=== PATIENT | female | born 1945 | race Caucasian/White ===

== ENCOUNTER 2018-12-26 02:47 | Emergency (ER) | payer MEDICARE ==
--- NOTE | 2018-12-26 03:02 | ER Report ---
History and Physical Time Seen By MD: 02:59 Hx. of Stated Complaint: PATIENT STARTED HAVING RIGHT UPPER QUADRANT PAIN THAT PLEZU5MR AROUND MIDNIGHT. PATIENT HAS HAD A LOT OF NAUSEA, PATIENT STATES IT FEEL LIKE A LOT OF PRESSURE. HPI/ROS CHIEF COMPLAINT: Right upper abdominal pain HISTORY OF PRESENT ILLNESS: This is a 73-year-old female. She is having pain in the right upper abdomen. Started abruptly at about midnight. Had a little bit of nausea associated with this. Nothing seemed to make it worse or better. Did have a little dry heaving. Also having significant pressure-like feeling this area. She has a history of heart arrhythmias, irregular heartbeat. She denies any chest pain at this time. No cough, fever or shortness of breath. Visiting for the weekend, from [place]. Allergies: Coded Allergies: No Known Drug Allergies (Unverified , 12/26/18) Home Meds Active Scripts Ondansetron 4 Mg Odt (ONDANSETRON 4 MG ODT) 4 Mg Tab.rapdis, 4 MG PO Q6H PRN for NAUSEA/VOMITING, #20 TAB 0 Refills Prov:JU KNIGHT MD 12/26/18 Hydrocodone Bit/Acetaminophen (HYDROCODON-ACETAMINOPHEN 5-325) 1 Each Tablet, 1 EACH PO Q4H PRN for PAIN, #12 TAB 0 Refills Prov:JU KNIGHT MD 12/26/18 Reported Medications Lactobacillus Combination No.4 (PROBIOTIC) 1 Each Capsule, 1 EACH PO QDAY, CAPSULE 12/26/18 Nebivolol Hcl (BYSTOLIC) 5 Mg Tablet, 5 MG PO QDAY 12/26/18 Flecainide Acetate (FLECAINIDE ACETATE) 50 Mg Tablet, 50 MG PO QDAY 12/26/18 Reviewed Nurses Notes: Yes Constitutional Vital Sign - Last 24 Hours 12/26/18 12/26/18 12/26/18 12/26/18 02:55 03:00 03:02 03:30 Temp 97.9 Pulse 79 82 Resp 24 B/P (MAP) 151/98 175/97 (123) 163/88 (113) Pulse Ox 90 99 O2 Delivery Room Air 12/26/18 12/26/18 12/26/18 12/26/18 03:32 04:00 04:02 04:07 Pulse 66 66 68 B/P (MAP) 169/94 (119) Pulse Ox 87 89 89 12/26/18 12/26/18 12/26/18 12/26/18 04:30 04:50 05:00 06:05 Pulse 64 73 B/P (MAP) 168/90 (116) 155/82 (106) Pulse Ox 79 91 12/26/18 12/26/18 12/26/18 06:06 06:11 06:41 Pulse ??? 63 B/P (MAP) 147/78 (101) Pulse Ox 90 88 Intake and Output 12/25/18 12/25/18 12/26/18 15:02 23:02 07:02 Intake Total 1000 ml Balance 1000 ml Physical Exam General Appearance: The patient is alert. No acute distress. Non-toxic in appearance. Eyes: Pupils are equal, round. No pallor, injection or icterus. ENT: Mucous membranes are moist. Neck: Supple and non tender. Respiratory: Lungs are clear to auscultation. Cardiovascular: Regular rate and rhythm. Has a 2/6 systolic murmur. No rubs. Normal capillary refill. Gastrointestinal: Abdomen is soft, some discomfort right upper and epigastric, but no focal tenderness. Nondistended. No rebound or guarding. Normal active bowel sounds. No costovertebral angle tenderness with percussion. Neurological: Alert and oriented x3. No focal neurologic deficits Skin: Warm and dry. Musculoskeletal: Extremities are nontender. No tenderness in palpation of the cervical, thoracic and lumbar spine. No tenderness with palpation of the ribs/chest wall. DIFFERENTIAL DIAGNOSIS: After history and physical exam, differential diagnosis was considered for patient with what appears to be abdominal pain including but not limited to cholecystitis, pancreatitis, colitis, gastritis, pulmonary infectious or inflammatory problem, and urinary tract infection. Medical Decision Making Data Points Result Diagram: 12/26/189 12/26/18318 Laboratory Hematology Test 12/26/18 03:19 White Blood Count 10.2 k/uL (4.5-11.0) Red Blood Count 5.22 M/uL (4.17-5.56) Hemoglobin 15.6 g/dL (12.0-16.0) Hematocrit 46.1 % (34.0-47.0) Mean Corpuscular Volume 88.3 fL (80.0-96.0) Mean Corpuscular Hemoglobin 29.9 pg (26.0-33.0) Mean Corpuscular Hemoglobin Concent 33.9 g/dL (32.0-36.0) Red Cell Distribution Width 14.1 % (11.5-14.5) Platelet Count 286 K/uL (150-450) Mean Platelet Volume 8.4 fL (7.2-11.1) Neutrophils (%) (Auto) 68.7 % (39.4-72.5) Lymphocytes (%) (Auto) 19.2 % (17.6-49.6) Monocytes (%) (Auto) 8.9 % (4.1-12.4) Eosinophils (%) (Auto) 2.1 % (0.4-6.7) Basophils (%) (Auto) 1.1 % (0.3-1.4) Nucleated RBC Relative Count (auto) 0.0 /100WBC Neutrophils # (Auto) 7.0 K/uL (2.0-7.4) Lymphocytes # (Auto) 2.0 K/uL (1.3-3.6) Monocytes # (Auto) 0.9 K/uL (0.3-1.0) Eosinophils # (Auto) 0.2 K/uL (0.0-0.5) Basophils # (Auto) 0.1 K/uL (0.0-0.1) Nucleated RBC Absolute Count (auto) 0.00 K/uL Chemistry Test 12/26/18 03:19 Sodium Level 139 mmol/L (137-145) Potassium Level 4.2 mmol/L (3.5-5.0) Chloride Level 101 mmol/L (98-107) Carbon Dioxide Level 27 mmol/L (22-31) Blood Urea Nitrogen 19 mg/dl (7-18) Creatinine 1.00 mg/dl (0.52-1.04) Glomerular Filtration Rate Calc 54.7 Random Glucose 124 mg/dl (75-110) Calcium Level 9.5 mg/dl (8.4-10.2) Total Bilirubin 0.4 mg/dl (0.2-1.3) Aspartate Amino Transf (AST/SGOT) 25 U/L (0-35) Alanine Aminotransferase (ALT/SGPT) 38 U/L (0-56) Alkaline Phosphatase 123 U/L (0-126) Total Protein 8.1 g/dl (6.3-8.2) Albumin 4.3 g/dl (3.5-5.0) Amylase Level 84 U/L (0-110) Lipase 324 U/L (23-300) Urinalysis Test 12/26/18 04:26 Urine Color Colorless Urine Clarity Clear Urine pH 6.0 pH (4.8-9.5) Urine Specific [place] 1.006 Urine Protein Negative mg/dL (NEGATIVE) Urine Glucose (UA) Negative mg/dL (NEGATIVE) Urine Ketones Negative mg/dL (NEGATIVE) Urine Blood Small (NEGATIVE) Urine Nitrite Negative (NEGATIVE) Urine Bilirubin Negative (NEGATIVE) Urine Urobilinogen Negative mg/dL (0.2-1.9) Urine Leukocyte Esterase Trace (NEGATIVE) Urine RBC 3 /HPF (0-2/HPF) Urine WBC 5 /HPF (0-5/HPF) Urine Squamous Epithelial Cells Few /LPF (</=FEW) Urine Transitional Epithelial Cells Few /LPF (NONE-FEW) Urine Bacteria Negative /HPF (NONE-FEW) Urine Mucus None /HPF (NONE-FEW) EKG/Imaging Imaging ACUTE ABDOMEN SERIES 3 VIEW HISTORY: Right-sided abdominal pain. COMPARISON: None. TECHNIQUE: PA upright view of the chest, AP supine and AP upright views of the abdomen. FINDINGS: CHEST: There is mild right hemidiaphragm elevation. The lungs are clear. There is no pneumothorax or pleural effusion. The cardiac and mediastinal silhouettes are within normal limits. There is a mild leftward curvature of the mid to lower thoracic spine. ABDOMEN: The distribution of bowel gas is normal, with bowel in all four quadrants as well as centrally. No free air. No dilated loops of bowel. There is a moderate rightward curvature of the thoracolumbar spine with a rotatory component. The apex is centered at L2. There are surgical clips in the right lower quadrant. There are pelvic phleboliths. IMPRESSION: 1. No acute cardiopulmonary process. 2. Normal bowel gas pattern without obstruction. 3. Scoliosis. Report Dictated By: Vivi Cortes at 12/26/2018 3:58 AM EXAMINATION: Limited right upper quadrant ultrasound 12/26/2018 4:46 AM HISTORY: Right upper quadrant pain since midnight. COMPARISON STUDIES: Acute abdominal series today FINDINGS: Gallbladder: Small gallstones. Borderline thickened but not edematous gallbladder wall. Sonographic Brizuela sign is negative. Liver: Minimally echogenic compared to the kidney suggesting fatty infiltration. No focal lesion. Common duct: Less than 3 mm Pancreas: negative Right kidney: negative Upper abdominal aorta and IVC: negative Ascites: none IMPRESSION: 1. Cholecystolithiasis without sonographic findings of acute cholecystitis or biliary obstruction. 2. Increased echogenicity of the liver consistent with fatty infiltration. Report Dictated By: Erasto Fritz MD at 12/26/2018 6:21 AM ED Course/Re-evaluation Clinical Indication for ER IV: Hydration, IV Access ED Course Labs unremarkable other than elevation of BUN/creatinine ratio. Lipase is a little elevated but amylase negative. Liver functions normal. Initial abdominal 3 view unremarkable. Based on symptoms, location, and the elevated lipase, recommended pursuing ultrasound of the gallbladder. This did show gallstones but uncomplicated without evidence of cholecystitis and no problem with a stone in the bile duct. Reviewed all this with the patient. She is feeling much better. She will return home and follow up with her doctor when she returns to [place]. See instructions below. Decision to Disposition Date: Dec 26, 2018 Decision to Disposition Time: 06:26 Depart Departure Latest Vital Signs Vital Signs Date Time Temp Pulse Resp B/P (MAP) Pulse Ox O2 Delivery O2 Flow Rate FiO2 12/26/18 06:41 63 88 12/26/18 06:06 147/78 (101) 12/26/18 02:55 97.9 24 Room Air Impression: Primary Impression: Gallstones Additional Impression: Biliary colic Condition: Improved Disposition: HOME OR SELF-CARE New Scripts Ondansetron 4 Mg Odt (ONDANSETRON 4 MG ODT) 4 Mg Tab.rapdis 4 MG PO Q6H PRN for NAUSEA/VOMITING, #20 TAB 0 Refills Prov: JU KNIGHT MD 12/26/18 Hydrocodone Bit/Acetaminophen (HYDROCODON-ACETAMINOPHEN 5-325) 1 Each Tablet 1 EACH PO Q4H PRN for PAIN, #12 TAB 0 Refills Prov: JU KNIGHT MD 12/26/18 Patient Instructions: Gallstones (ED) Additional Instructions: Your pain tonight was caused by gallstones. Fortunately, there is no sign of infection of the gallbladder or stones in the common bile duct. We recommend avoiding foods with a lot of fat; this may help prevent further pain from the gallstones. However pain can flare back up, and we recommend reevaluation if the pain is severe, associated with fevers or chills, or accompanied by severe vomiting. You can take Lortab 5/325, one tablet every 4 hours as needed for severe pain. You can take ibuprofen 200 mg [id number] tablets, 3 tablets every 6 hours as needed for pain. You can use Zofran 4 mg, one every 6 hours as needed for nausea. Please follow-up with your primary care provider when you return home to [place]. Problem Qualifiers JU KNIGHT MD Dec 26, 2018 03:02
[2018-12-26] MEDS ORDERED: FLEC50TA16 PO (03:07)
[2018-12-26] MEDS ORDERED: LACT1CAP6 PO (03:07)
[2018-12-26] MEDS ORDERED: NEBI5TAB PO (03:07)
[2018-12-26 03:43] LABS: PLATELET COUNT, AUTOMATED 286 K/uL (150-450)
[2018-12-26] MEDS ORDERED: NS(*) 0.9% 1000 ML BAG 1,000 ML IV ONE (03:50)
--- NOTE | 2018-12-26 04:08 | RADIOLOGY IMAGING REPORT ---
FACILITY: [facility] - [place] PATIENT NAME: Winsome Frias : 1945 MR: [id number] V: [id number] EXAM DATE: ORDERING PHYSICIAN: JU KNIGHT TECHNOLOGIST: Location: [facility] - [place] Patient: Winsome Frias : 1945 Visit/Account:[id number] Date of Sevice: 12/26/2018 ACUTE ABDOMEN SERIES 3 VIEW HISTORY: Right-sided abdominal pain. COMPARISON: None. TECHNIQUE: PA upright view of the chest, AP supine and AP upright views of the abdomen. FINDINGS: CHEST: There is mild right hemidiaphragm elevation. The lungs are clear. There is no pneumothorax or pleural effusion. The cardiac and mediastinal silhouettes are within normal limits. There is a mild l eftward curvature of the mid to lower thoracic spine. ABDOMEN: The distribution of bowel gas is normal, with bowel in all four quadrants as well as central ly. No free air. No dilated loops of bowel. There is a moderate rightward curvature of the thoracolum bar spine with a rotatory component. The apex is centered at L2. There are surgical clips in the righ t lower quadrant. There are pelvic phleboliths. IMPRESSION: 1. No acute cardiopulmonary process. 2. Normal bowel gas pattern without obstruction. 3. Scoliosis. Report Dictated By: Vivi Cortes at 12/26/2018 3:58 AM Report E-Signed By: Vivi Cortes at 12/26/2018 4:00 AM WSN:[id number]
[2018-12-26 06:06] VITALS: BP 147/78
[2018-12-26] MEDS ORDERED: ONDANSETRON 4 MG ODT TH SL ONE (06:30)
[2018-12-26] MEDS ORDERED: ACET/HYDROC 5/325MG TH ER ONLY 2 TAB/BOTTLE PO ONE (06:30)
--- NOTE | 2018-12-26 06:30 | RADIOLOGY IMAGING REPORT ---
FACILITY: [facility] PATIENT NAME: Winsome Frias : 1945 MR: [id number] V: [id number] EXAM DATE: ORDERING PHYSICIAN: JU KNIGHT TECHNOLOGIST: Location: [facility] - [place] Patient: Winsome Frias : 1945 Visit/Account:[id number] Date of Sevice: 12/26/2018 EXAMINATION: Limited right upper quadrant ultrasound 12/26/2018 4:46 AM HISTORY: Right upper quadrant pain since midnight. COMPARISON STUDIES: Acute abdominal series today FINDINGS: Gallbladder: Small gallstones. Borderline thickened but not edematous gallbladder wall. Sonographic M urphy sign is negative. Liver: Minimally echogenic compared to the kidney suggesting fatty infiltration. No focal lesion. Common duct: Less than 3 mm Pancreas: negative Right kidney: negative Upper abdominal aorta and IVC: negative Ascites: none IMPRESSION: 1. Cholecystolithiasis without sonographic findings of acute cholecystitis or biliary obstruction. 2. Increased echogenicity of the liver consistent with fatty infiltration. Report Dictated By: Erasto Fritz MD at 12/26/2018 6:21 AM Report E-Signed By: Erasto Fritz MD at 12/26/2018 6:24 AM WSN:[id number]
[2018-12-26] MEDS ORDERED: LOR5/325 PO (06:32)
[2018-12-26] MEDS ORDERED: ONDA4TAB9 PO (06:32)
== END 2018-12-26 06:52 | disposition home or self-care (01) ==
LOC: ER 03:19
DX: K80.80 Other cholelithiasis without obstruction (principal); K80.50 Calculus of bile duct without cholangitis or cholecystitis without obstruction
CPT/HCPCS: 74022; 76705; 81001; 82150; 83690; 85025; 96360; 99284; J7030; Q0162; 82040; 82247; 82310; 82374; 82435; 82565; 82947; 84075; 84132; 84155; 84295; 84450; 84460; 84520; S0119